=== PATIENT | male | born 1970 | race Caucasian/White ===

== ENCOUNTER 2018-04-23 11:02 | Observation (INO) ==
[2018-04-23] MEDS ORDERED: Naloxone 0.4 MG/ML INJ IVP PRN (11:37)
--- NOTE | 2018-04-23 11:47 | Cardiology History & Physical ---
Addendum entered and electronically signed by Tenzin Pierre CNP 04/23/18 12:37 : Systolic blood pressure noted be in the 170s. On VIKTORIYA inhibitor at home, however unknown dosage. Will start beta rebecca for blood pressure optimization and nonsustained ventricular tachycardia. Original Note: Date of Encounter: 04/23/18 Time of Encounter: 11:45 Assessment and Plan (1) Abnormal stress ECG Current Visit: Yes Status: Acute Abnormal ECG on stress test. Nuclear stress images reviewed by Dr. Palmer shows perfusion defect. Unfortunately, rest pics pending for tomorrow. The assessment and plan as outlined above was discussed with the patient and/or family members who expressed understanding and agreement. All questions were answered. (2) Non-sustained ventricular tachycardia Current Visit: Yes Status: Acute Frequent PVCs with episodes of nonsustained ventricular tachycardia during exercise nuclear stress test around peak exercise. Plan for admission with monitoring on telemetry and possible further ischemic evaluation tomorrow. Check potassium and magnesium. We will check echocardiogram. Possible completion of stress test versus catheterization. The assessment and plan as outlined above was discussed with the patient and/or family members who expressed understanding and agreement. All questions were answered. History of Present Illness Chief complaint: CP HPI: Mr. Marmolejo is a 47 year old male with a relevant past medical history of obstructive sleep apnea with CPAP, hypertension, and premature CAD. Brother with history of CABG at age 66 and history of mother with CAD with stenting. Seen by Dr. Doretha Del Angel in outpatient setting with stress echo being nondiagnostic for ischemia however noted to have frequent PVCs. Patient seen today during exercise nuclear stress test with multiple PVCs and episodes of nonsustained VT, multifocal. Chest pain-free. Stress images reviewed and discussed with Dr. Palmer with concerns of perfusion defect. Patient being directly admitted for observation. We will check echocardiogram. Plan to complete stress test versus catheterization tomorrow. Patient reports seen in the office for evaluation of left shoulder pain with radiation to his chest that occurs with rest and with exertion that last for a few minutes and resolves. He denies any shortness of breath, fatigue, palpitations, dizziness, syncope, falls. Denies any active bleeding or blood loss. Past Med Surg Social Fam HX - Past Medical History Attestation: Yes The following information was validated with the patient. Source: patient, old records reviewed, obtained from family Medical history: hyperlipidemia, hypertension Additional medical history: sleep apnea Psychiatric history: depression - Past Surgical History Surgical History: no surgical history - Social History Smoking Status: Current every day smoker Alcohol use: none Drug use: none Medications and Allergies 3 Allergy/AdvReac Type Severity Reaction Status Date / Time No Known Allergies Allergy Verified 06/30/15 08:25 All Systems Review: The remainder of the systems were reviewed and are negative - Cardiovascular Cardiovascular: as per HPI, chest pain at rest, chest pain with exertion Physical Examination Pending General: Conversant, No Apparent Distress HEENT: Atraumatic, Normocephaly, Mucus Membranes Moist Neck: No JVD, Normal carotid pulses Cardiac: Reg Rate and Rhythm, Normal S1 and S2, No Murmur Lungs: Normal Breath Sounds, No Wheeze, Rales, Rhonchi Neuro: Alert and responsive, No focal deficits noted Abdomen: Soft, Non-Tender Skin: No rashes noted on visualized skin Musculoskeletal: No Chest Wall Tenderness Extremities: No Clubbing, No Cyanosis, No Edema, Normal Pulses Results We will check CBC, BMP, and INR - Imaging and Cardiology Stress Test: pending Echo: pending - EKG Interpretation EKG results cardiology: personally reviewed, normal ECG, sinus rhythm - VTE Reasons for not Prescribing Prophylaxis: Treatment not Indicated - Low risk for VTE
[2018-04-23 13:12] LABS: Hematocrit 40.9 % (37.5-50.1); Hemoglobin 14.1 g/dL (12.9-16.9); Mean Corpuscular HGB Conc 34.5 g/dL (31.6-35.5); Mean Corpuscular Hemoglobin 29.2 pg (28.0-33.3); Mean Corpuscular Volume 84.7 fL (83.0-100.0); Mean Platelet Volume 9.5 fL (9.4-12.4); Platelet Count 239 K/mcL (140-400); Red Blood Count 4.83 M/mcL (4.19-5.50); Red Cell Distribution Width 12.9 % (11.5-14.5)
[2018-04-23 13:23] LABS: INR 1.2; Prothrombin Time 13.4 Seconds (9.4-12.1)
[2018-04-23 13:31] LABS: BUN/Creatinine Ratio 17 (6-26); Blood Urea Nitrogen 13 mg/dL (6-20); Calcium 9.2 mg/dL (8.6-10.3); Carbon Dioxide 27 mEq/L (23-29); Chloride 106 mEq/L (98-107); Glucose 102 mg/dL (70-105); Osmolality,Calculated 284 (280-300); Potassium 4.1 mEq/L (3.5-5.1); Sodium 137 mEq/L (136-145); eGFR For Non-African Americans > 60 (> 60)
[2018-04-23] MEDS: Ibuprofen 400 MG TABLET PO PRN (17:36)
[2018-04-24] MEDS ORDERED: *HR* HYDROcodone/Acet 5/325 mg TABLET PO PRN (08:06)
--- NOTE | 2018-04-24 08:40 | Event Note ---
Date of Encounter: 04/24/18 Time of Encounter: 08:10 - Cardiology Event Note Laboratory Tests 04/23/18 04/23/18 12:54 12:54 INR 1.2 Potassium 4.1 Creatinine 0.75 Est GFR (Non-Af Amer) > 60 Echo pending. No VT noted on tele. Denies any concerns over night. Discussed and reviewed with Dr. Doretha Del Angel, for left heart catheterization today. All questions answered.
[2018-04-24] MEDS: Ibuprofen 400 MG TABLET PO PRN (10:26)
[2018-04-24] MEDS ORDERED: *HR* Heparin 10,000 UNIT/10 ML VIAL ONE (12:12)
[2018-04-24] MEDS ORDERED: ISOVUE-370 200 ML INFUS..BTL IV ONE (12:12)
[2018-04-24] MEDS ORDERED: 0.9 % Sodium Chloride 1,000 ML ONE ×2 (12:12→13:09)
[2018-04-24] MEDS ORDERED: Heparin 1,000 UNITS/500 mL 500 ML ONE (12:12)
[2018-04-24] MEDS ORDERED: Nitroglycerin 1,000 MCG/10 ML VIAL IV ONE (12:12)
--- NOTE | 2018-04-24 13:32 | Pre-Sedation Evaluation ---
Pre-sedation evaluation - Pre-sedation checklist Date of procedure: 04/24/18 Procedure: [facility] Recent Vitals: Last Vital Signs Temp 98.3 F 04/24/18 10:50 Pulse 44 04/24/18 12:51 Resp 18 04/24/18 10:50 BP 164/84 04/24/18 12:51 Pulse Ox 97 04/24/18 10:50 H&P (including ROS) documented in medical record: Yes Previous reaction to sedatives/anesthetics: No Dietary Status: NPO after Midnight Airway Assessment: Patient can open mouth completely, TMJ function normal, Micrognathia (under-bite, receding chin) absent, Neck with adequate range of motion Dentition: No loose teeth or bridges Possible difficult airway: No ASA Classification *see protocol: CLASS II-Mild systemic disease Plan of Care: Pt appropriate candidate for procedure/moderate/conscious sedation , Risks/benefits of procedure/sedation discussed w/ patient/family Cardiac Registry (Cardio Only) - Functional Capacity Functional Capacity: >=4 METS with symptoms - Clincal Frailty Scale Clinical Frailty Scale: Managing Well
[2018-04-24] MEDS ORDERED: *HR* FentaNYL (PF) 100 MCG/2 ML VIAL ONE (13:40)
[2018-04-24] MEDS ORDERED: *HR* Midazolam HCl 2 MG/2 ML VIAL ONE (13:40)
--- NOTE | 2018-04-24 14:23 | Invasive Diagnostic Lab Proc ---
Name: Barrera Marmolejo Date of Study: 04/24/2018 Date: 1970 Ht: 72.0in Medical Record#: [id number] Age: 47 Wt: 277.78lb Gender: Male BSA: 2.45 Order #: [id number] BMI: 37.62 Physicians Procedure Physician: Doretha Del Angel MD, FACC Referring MD: Referring MD: Staff Name Position Time In Ladonna Padilla RT (R) Monitor 01:41 PM KevinBarry RT (R) Scrub 01:41 PM Melanie Nguyen RN Waste Minimization Technician 01:41 PM Indications Indication Abnormal Test - Stress Procedures Performed Procedure L HRT ARTERY/VENTRICLE ANGIO Pre-Procedure Checklist Informed consent is complete signed and on chart. H&P is on chart. ID band is on and ID verified with patient. Patient NPO for procedure The procedure was described for the patient and questions were answered. Blood Pressure: 162/96 ECG is on chart. Plan of Care Patient will tolerate the procedure without complications. Adequate level of comfort will be maintained. Hemodynamics will remain stable Patient will recover from procedure without complications. Respiratory function will be maintained. Cardiac rhythm will remain stable. Patient temperature will be maintained. Patient and/or family have verbalized understanding of the procedure. Patient Education Chief Complaint/Reason for Test: Cardiac Cath Developmental Category: Adult (18-64 years) Developmentally Appropriate for Age: Yes Learning Barriers: None Education Needs: Plan of Care Education Method: Verbal Information Taught: Cardiac Cath Educational Evaluation: Able to repeat information Intravenous Access Time IV Size Location DC'd Fluid/Drip Rate Units RN 01:17 PM 22g 1" Patent On Arrival Rt Hand 0.9NaCl 25 ml/hr Allergies No Known Allergies Vital Signs Time BP (mmHg) HR (bpm) O2 Sat. RR (bpm) LOC 09:28 AM 162 / 96 44 96 % 17 5 = Fully awake and oriented or at pre-proc level 01:42 PM / % 4 = Oriented but drowsy Procedural Medications Time Medication Dose Units Method Given By 01:41 PM Oxygen 2 L/min nasal cannula Melanie Nguyen RN 01:42 PM Versed 2 mg Intravenous Melanie Nguyen RN 01:42 PM Fentanyl 50 mcg Intravenous Melanie Nguyen RN 01:48 PM Benadryl 25 mg Intravenous Melanie Nguyen RN 01:48 PM Lidocaine 2% 20 ml Subcutaneous Doretha Del Angel MD, [facility] ASA Classification: CLASS II- Mild systemic disease (i.e. well-controlled diabetes, hypertension, asthma, cigarette smoking) Shaan Score Preprocedure Postprocedure Activity 2- Moves 4 extremities sustained head lift Activity 2- Moves 4 extremities sustained head lift Circulation 2- SBP +/= 20 points of pre-anesthetic level Circulation 2- SBP +/= 20 points of pre-anesthetic level Consciousness 2- Awake and alert oriented x 3 Consciousness 2- Awake and alert oriented x 3 O2 Saturation 2- Able to maintain O2 satruation of 92% on room air O2 Saturation 2- Able to maintain O2 satruation of 92% on room air Respiratory 2- Able to deep breathe and cough well Respiratory 2- Able to deep breathe and cough well Total Score 10 Total Score 10 Contrast Agent: Isovue Diagnostic Contrast: 94 ml Total Contrast: 94 ml Fluoro Dose: 6032 mGy Procedure Log Time Note Enter By 01:41 PM Pt arrived to laboratory mechanic helper 2 at 13:40 scoates :41 PM Ladonna Padilla RT (R) Position: Monitor Time in: 13:41 scoates 01:41 PM Barry Brown RT (R) Position: Scrub Time in: 13:41 scoates :41 PM Melanie Nguyen RN Position: Waste Minimization Technician Time in: 13:41 scoates 01:41 PM Patient charges- Angio tray pack, Navilyst 3mm J, Pulse Oximetry and ACIST tubing and transducer scoates 01:41 PM Case Delayed No scoates :41 PM Hair removed from procedure site in holding area using clippers. Bilateral groin prepped with Chloraprep by Ladonna Padilla RT (R), then patient was draped. Skin intact. scoates 01:41 PM Physician arrived 13:41 scoates :41 PM Meet and greet completed scoates :41 PM ASA Class CLASS II- Mild systemic disease (i.e. well-controlled diabetes, hypertension, asthma, cigarette smoking) scoates 01:41 PM Sign in performed according to hospital policy. scoates 01:41 PM Procedure start 13:41 scoates :41 PM Time: 13:41 Oxygen on at 2 L/min per nasal cannula by Melanie Nguyen RN scoates 01:42 PM Time: 13:42 Versed 2 mg Intravenous Given by Melanie Nguyen RN scoates 01:42 PM Time: 13:42 Fentanyl 50 mcg Intravenous Given by Melanie Nguyen RN scoates 01:42 PM Time: 13:42 Patient comfortable and pain free: Yes scoates 01:42 PM Time: 13:42LOC: 4 = Oriented but drowsy scoates 01:46 PM Time out performed according to hospital policy [email or web address] 01:48 PM Time: 13:48 Benadryl 25 mg Intravenous Given by Melanie Nguyen RN [email or web address] 01:49 PM Time: 13:48 20 ml Lidocaine 2% to right groin Subcutaneous Given by Doretha Del Angel MD, [facility] [email or web address] 01:50 PM Access obtained by percutaneous puncture. 5Fr 10cm Terumo [place] sheath placed in right Femoral artery. [id number] [email or web address] 01:50 PM 0.035 145cm Navilyst 3mmJ wire [id number] [email or web address] 01:50 PM 5Fr FL 4 catheter inserted over the wire DN [email or web address] 01:53 PM Catheter removed [email or web address] 01:53 PM 5Fr FR 4 catheter inserted over the wire DN [email or web address] 01:53 PM RCA angiography performed in multiple views. [email or web address] 01:54 PM Coronary Dominance: right [email or web address] 01:54 PM Catheter removed [email or web address] 01:54 PM 5Fr FL 3.5 catheter inserted over the wire [id number] [email or web address] 01:54 PM LCA angiography performed in multiple views. [email or web address] 01:58 PM Catheter removed [email or web address] 01:58 PM 5Fr Pigtail catheter inserted over the wire DN [email or web address] 02:00 PM Catheter selectively placed in left ventricle [email or web address] 02:00 PM Bolus angiogram of left Ventricle complete: 8 ml/sec for a total of 24 mls [email or web address] 02:01 PM Catheter removed [email or web address] 02:01 PM Bolus angiogram of right Femoral complete: 4 ml/sec for a total of 7 mls [email or web address] 02:02 PM Procedure completed at 14:02 04/24/2018 [email or web address] 02:02 PM Did you address LV flow and Dominance? Yes [email or web address] 02:02 PM Sign out completed: Radiation Dose 488.49 mGy, 6031.71 cGy/cm2 Fluoro Time: 3.5 Isovue 370 - 200ml contrast 94 ml given by Doretha Del Angel MD, [facility]. Complications: NoneCardiac Rehab Consult needed: NoConfirmed administered medications: Yes [email or web address] 02:02 PM Isovue 370 - 200ml,1 Bottle(s) used. [email or web address] 02:02 PM Arterial sheath pulled, Mynx closure device used and was Successful S/N. [email or web address] 02:03 PM Estimated Blood Loss: minimal [email or web address] 02:03 PM Post ECG Sinus Bradycardia [email or web address] 02:03 PM Information taught Cardiac Cath and Mynx [email or web address] 02:04 PM Education needs Procedure, Disease Process, and Discharge Instructions [email or web address] 02:04 PM Learning barriers :None [email or web address] 02:04 PM Education Methods Verbal [email or web address] 02:04 PM Education evaluation Able to repeat information [email or web address] 02:04 PM Site status No bleeding/hematoma - Rt Groin as reported by Barry Brown RT (R) at 14:04 [email or web address] 02:04 PM Delay to floor No [email or web address] 02:04 PM Family placed in consult room. [email or web address] 02:05 PM Complications: None [email or web address] 02:06 PM Opsite applied [email or web address] 02:14 PM Report given to Madonna GONZALEZ Pt taken to 3B Room #54. 14:13 [email or web address] 02:14 PM Patient out of room: 14:14 [email or web address] Complications Complication None None Post Procedure Information Rhythm: Sinus Bradycardia Post procedural instructions were not given Closure Device Time Device Success/Fail 04/24/2018 2:06:00 PM MynxGrip Successful Site Checks Time Location Status Staff Sheath In? Note 02:04 PM Rt Groin No bleeding/hematoma Barry Brown RT (R) Pulses Time Site Pre-Procedure Post-Procedure Note Bilateral DP 2+ 2+ Bilateral radial 2+ 2+ Updated by Ladonna Padilla RT(R) on 04/24/2018 2:14:21 PM electronically signed on 04/24/2018 2:15:09 PM with status of Final
--- NOTE | 2018-04-24 14:50 | Discharge Summary ---
Orders not resulted at time of discharge: Pending orders 04/24/18 06:00 ECG 12 lead ECG [ECG] AM 0600 04/24/18 08:45 CL Cardiac Catheterization [CL] Routine 04/25/18 04:00 Magnesium AM 0400 Date of Encounter: 04/24/18 Time of Encounter: 14:45 - Discharge Diagnosis (1) Abnormal stress ECG Priority: Primary Status: Acute (2) Non-sustained ventricular tachycardia Priority: Primary Status: Acute - Hospital Course Hospital course: Mr. Marmolejo is a 47 year old male admitted during outpatient exercise nuclear stress test for frequent episodes of nonsustained ventricular tachycardia and PVCs. Echo showed EF preserved with no significant valvular dysfunction. Underwent left heart catheterization with Dr. Doretha Del Angel with reports of no significant lesions. Patient being prepared for discharge to home on beta rebecca-- no further events noted on telemetry. We will continue with metoprolol tartrate 25 mg by mouth twice a day as heart rates and then running in low 50s. We will discontinue VIKTORIYA inhibitor/HCTZ antihypertensive. Patient being coordinated for cardiac MRI by Dr. Doretha Del Angel at outside facility. Patient to follow-up with Dr. Daniel Del Angel EP clinic for further evaluation. All questions answered. - Time Spent with Patient Total time spent providing and/or coordinating discharge services: Less than 30 minutes - Discharge Medications Prescriptions: Metoprolol [Lopressor] 25 mg PO BID #60 tablet Home Medications: Citalopram Hydrobromide [Citalopram HBr] 20 mg PO DAILY 04/23/18 [History] HYDROcodone/Acet 5/325 mg [[place] 5-325 mg] 1 tab PO TID PRN 04/23/18 [History] Metoprolol [Lopressor] 25 mg PO BID #60 tablet 04/24/18 [Rx] Allergies/Adverse Reactions: 3 Allergy/AdvReac Type Severity Reaction Status Date / Time No Known Allergies Allergy Verified 06/30/15 08:25 Date of admission: 04/23/18 11:28 Consults: 04/23/18 22:05 Consult to Respiratory Therapy [CONS] Routine Reason for Consult: Patient wears CPAP at night, doesnt have machine with him. Nurse contacted cardiology who advised to contact RT for CPAP. Call Completed: No Discharging clinician: Tenzin Pierre Anticipated date of discharge: 04/24/18 Physical Examination Vital Signs, Last 4 Hours Temp Pulse Resp BP Pulse Ox 04/24/18 12:51 44 164/84 04/24/18 10:50 98.3 F 48 18 172/105 97 General: Conversant, No Apparent Distress HEENT: Atraumatic, Normocephaly, Mucus Membranes Moist Neck: No JVD, Normal carotid pulses Cardiac: Reg Rate and Rhythm, Normal S1 and S2, No Murmur Lungs: Normal Breath Sounds, No Wheeze, Rales, Rhonchi Neuro: Alert and responsive, No focal deficits noted Abdomen: Soft, Non-Tender Skin: No rashes noted on visualized skin Musculoskeletal: No Chest Wall Tenderness Extremities: No Clubbing, No Cyanosis, No Edema, Normal Pulses - Patient Status Disposition: Home, Self-Care Condition: Good Overall status at discharge: patient is progressing back to baseline - Discharge Instructions Additional Instructions: RISK FACTORS: STOP SMOKING: If you smoke, STOP. Smoking or tobacco use significantly increases your risk of heart disease because nicotine causes the arteries to narrow or constrict. It also causes fats to stick to the artery. Your chances of having a heart attack are greatly increased if you continue to smoke. For more information, call the education line for smoking cessation 1-361-EAMWAJG EAT A LOW FAT/CHOLESTEROL/SODIUM DIET: This diet may help reduce your chances of having a heart attack. LIFTING: Avoid lifting anything more than 10 pounds for 5-7 days Prior to straining, laughing, sneezing and/or coughing, apply manual pressure directly over insertion site. ACTIVITY: You may walk or climb stairs as tolerated You can resume sexual activity as tolerated In general, you are encouraged to engage in a minimum of 30 minutes or more of moderate intensity physical activity, such as brisk walking, daily or at least 3 -4 times weekly BATHING Do not submerge the site into water (bath tub, hot tub, swimming pool) for 1 week. This can be a source for infection into the blood stream. You may shower after 24 hours SITE CARE: After 24 hours, you may remove the dressing and leave the site open to air. Keep the site clean and dry. Clean gently and pat dry. You can expect bruising and tenderness that gradually resolve within a week or two. Return to work as instructed per your physician Resume driving as instructed per physician Keep all scheduled follow up appointments Resume medications as instructed IMPORTANT: If prescribed a Platelet Aggregation Inhibitor such as, Plavix, Brilinta or Effient: Duration of therapy is minimum one year These medications are often used in combination with Aspirin in prevention of future heart attacks Never discontinue unless consult with your Seo Analyst STROKE (CVA) Risk factors for a stroke are: Age, cigarette smoking, diabetes, excessive alcohol consumption, family history, high blood pressure, overweight, physical inactivity, prior stroke, heart attack, diagnosis of carotid artery stenosis or other artery disease. Warning signs: Sudden numbness or weakness of the face, arm or leg; especially on one side of the body, sudden confusion, trouble speaking or understanding, sudden trouble seeing in one or both eyes, sudden trouble walking, dizziness, loss of balance or coordination, sudden severe headache with no cause. Call 911 or go to the Emergency Room. CONGESTIVE HEART FAILURE: If you have been diagnosed with Congestive Heart Failure (CHF) and your symptoms return, make an appointment with your physician Weigh yourself daily. Notify your physician if you have a weight gain of two or more pounds in one day or five or more pounds in one week. If you experience any difficulty breathing, please call 911 BLEEDING: Although the risk of bleeding is minimal, it can happen. If you have any bleeding from the site, apply firm pressure above the puncture site for 10-15 minutes. If the bleeding does not stop, continue manual pressure and call 911 Contact your physician if: You develop a fever greater than 101 degrees Fahrenheit Your site becomes reddened or has any drainage You have an increase in pain or burning at the site or if a large knot forms at the site. If you experience chest pain, shortness of breath, dizziness, or extreme tiredness, stop the activity and rest. Please notify your physicians office if you experience any of these symptoms and they are not relieved by rest please call 911! - Diet and Activity Diet: low fat, low cholesterol, low salt diet - VTE Reasons for not Prescribing Prophylaxis: Treatment not Indicated - Low risk for VTE
[2018-04-24 18:50] VITALS: BP 142/83
== END 2018-04-24 17:27 | disposition home or self-care (01) ==
LOC: 3BNU
PROVIDERS: ADMIT Emergency Medicine; ATTEND Emergency Medicine